=== PATIENT | female | born 1965 | race Asian ===

== ENCOUNTER 2017-01-29 17:54 | Emergency (ER) | payer OTHER ==
[~2017-01-29] VITALS: Ht 157.5 cm; Wt 63.6 kg
[~2017-01-29 17:54] MED LIST: IBUP-1547 PO; LORA10TA7 PO; METO50 PO; SUMA25TA9 PO
[2017-01-29 19:14] LABS: BASOPHILS # (AUTO) 0.04 K/uL (0.00-0.20); BASOPHILS % (AUTO) 0.6 % (0.0-2.0); EOSINOPHILS # (AUTO) 0.11 K/uL (0.00-0.70); EOSINOPHILS % (AUTO) 1.58 % (1.0-6.0); HEMATOCRIT 39.5 % (36-46); LYMPHOCYTES # (AUTO) 1.9 K/uL (1.0-4.8); LYMPHOCYTES % (AUTO) 27.5 % (22.0-44.0); MEAN CORPUSCULAR HEMOGLOBIN 29.6 pg (26.0-34.0); MEAN CORPUSCULAR HGB CONC 32.8 G/dL (31.0-37.0); MEAN CORPUSCULAR VOLUME 90 fL (80-100); MONOCYTES # (AUTO) 0.5 K/uL (0.1-1.0); MONOCYTES % (AUTO) 7.2 % (2.0-9.0); NEUTROPHILS # (AUTO) 4.3 K/uL (1.8-7.7); NEUTROPHILS % (AUTO) 63.1 % (40.0-70.0); PLATELET COUNT (AUTO) 309 K/uL (150-450); RED BLOOD CELL COUNT(AUTO) 4.38 MIL/uL (4.00-5.20); RED CELL DISTRIBUTION WIDTH 13.7 % (11.5-14.5); WHITE BLOOD COUNT (AUTO) 6.9 K/uL (4.5-11.0)
[2017-01-29 19:22] LABS: ANION GAP 6 mmol/L (8-16); CALCIUM, TOTAL 8.5 mg/dL (8.8-10.5); CARBON DIOXIDE 29 mmol/L (22-29); CHLORIDE 102 mmol/L (98-107); GLOMERULAR FILTR. RATE CALC > 60 mL/min (>60); POTASSIUM 3.5 mmol/L (3.5-5.1); SODIUM SERUM 137 mmol/L (136-145); UREA NITROGEN, BLOOD 6 mg/dL (7-18)
[2017-01-29 19:28] LABS: ALANINE AMINOTRANSFERASE 37 U/L (12-78); ALBUMIN 3.4 g/dL (3.4-5.0); ASPARTATE AMINOTRANSFERASE 30 U/L (15-37); BILIRUBIN,TOTAL 0.2 mg/dL (0.1-1.0); CREATINE KINASE, TOTAL 64 U/L (26-192); TOTAL PROTEIN, SERUM 7.3 g/dL (6.4-8.2)
[2017-01-29 19:47] LABS: B-TYPE NATRIURETIC PEPTIDE 15 pg/mL (0-100)
[2017-01-29 19:53] LABS: APPEARANCE,URINE CLEAR (CLEAR); GLUCOSE, URINE (UA) NEGATIVE (NEGATIVE); KETONES,URINE NEGATIVE (NEGATIVE); LEUKOCYTE ESTERASE ,URINE NEGATIVE (NEGATIVE); OCCULT BLOOD,URINE NEGATIVE (NEGATIVE); PROTEIN,URINE NEGATIVE (NEGATIVE)
[2017-01-29 20:35] LABS: ADD UA MICROSCOPIC NO
[2017-01-29 20:52] LABS: GLUCOSE,POINT OF CARE 106 MG/DL (70-110)
[2017-01-29 20:59] VITALS: BP 146/78
== END 2017-01-29 21:23 | disposition home or self-care (01) ==
LOC: EMS 17:57
DX: R00.2 Palpitations (principal); I10 Essential (primary) hypertension; Z88.8 Allergy status to other drugs, medicaments and biological substances
CPT/HCPCS: 81025; 82962; 93005; 99285

== ENCOUNTER 2017-05-26 04:18 | Emergency (ER) | payer OTHER ==
[~2017-05-26] VITALS: Ht 157.5 cm; Wt 57.3 kg
[2017-05-26] MEDS ORDERED: ASPIRIN 81 MG CHEWABLE TABLET PO ONE (05:00)
[2017-05-26 05:27] LABS: BASOPHILS % (AUTO) 0.4 % (0.0-2.0); EOSINOPHILS % (AUTO) 1.2 % (1.0-6.0); HEMATOCRIT 39.5 % (36-46); HEMOGLOBIN 13.5 g/dL (12.0-16.0); LYMPHOCYTES # (AUTO) 1.3 K/uL (1.0-4.8); LYMPHOCYTES % (AUTO) 26.9 % (22.0-44.0); MEAN CORPUSCULAR HEMOGLOBIN 30.6 pg (26.0-34.0); MEAN CORPUSCULAR HGB CONC 34.1 G/dL (31.0-37.0); MEAN CORPUSCULAR VOLUME 90 fL (80-100); MONOCYTES # (AUTO) 0.5 K/uL (0.1-1.0); MONOCYTES % (AUTO) 10.9 % (2.0-9.0); NEUTROPHILS # (AUTO) 2.9 K/uL (1.8-7.7); NEUTROPHILS % (AUTO) 60.6 % (40.0-70.0); PLATELET COUNT (AUTO) 323 K/uL (150-450); RED CELL DISTRIBUTION WIDTH 14.2 % (11.5-14.5); WHITE BLOOD COUNT (AUTO) 4.7 K/uL (4.5-11.0)
[2017-05-26 05:38] LABS: ANION GAP 8 mmol/L (8-16); CALCIUM, TOTAL 8.3 mg/dL (8.8-10.5); CARBON DIOXIDE 25 mmol/L (22-29); CHLORIDE 105 mmol/L (98-107); CREATININE 0.64 mg/dL (0.60-1.30); GLOMERULAR FILTR. RATE CALC > 60 mL/min (>60); POTASSIUM 3.5 mmol/L (3.5-5.1); SODIUM SERUM 138 mmol/L (136-145); UREA NITROGEN, BLOOD 11 mg/dL (7-18)
[2017-05-26 05:44] LABS: ALANINE AMINOTRANSFERASE 65 U/L (12-78); ALBUMIN 3.5 g/dL (3.4-5.0); ASPARTATE AMINOTRANSFERASE 40 U/L (15-37); BILIRUBIN,TOTAL 0.6 mg/dL (0.1-1.0); CREATINE KINASE, TOTAL 45 U/L (26-192); TOTAL PROTEIN, SERUM 7.3 g/dL (6.4-8.2)
[2017-05-26 05:48] LABS: B-TYPE NATRIURETIC PEPTIDE 18 pg/mL (0-100)
[2017-05-26 06:17] VITALS: BP 136/88
[2017-05-27] MEDS ORDERED: HYD25 PO (22:31)
== END 2017-05-26 07:22 | disposition home or self-care (01) ==
LOC: EMS 04:19
DX: R00.2 Palpitations (principal); I11.9 Hypertensive heart disease without heart failure; Z88.8 Allergy status to other drugs, medicaments and biological substances
CPT/HCPCS: 93005; 99285

== ENCOUNTER 2017-05-27 22:13 | Emergency (ER) | payer OTHER ==
[~2017-05-27] VITALS: Ht 154.9 cm; Wt 57.3 kg
[~2017-05-27 22:13] MED LIST changes: -SUMA25TA9 PO
[2017-05-27 22:23] VITALS: BP 168/92
[2017-05-27] MEDS ORDERED: HYD25 PO (22:31)
== END 2017-05-27 23:23 | disposition left against medical advice (07) ==
LOC: EMS 22:14
DX: Z00.8 Encounter for other general examination (principal); F41.9 Anxiety disorder, unspecified; I11.9 Hypertensive heart disease without heart failure; Z53.21 Procedure and treatment not carried out due to patient leaving prior to being seen by health care provider

== ENCOUNTER 2017-08-10 02:23 | Emergency (ER) | payer OTHER ==
[~2017-08-10] VITALS: Ht 154.9 cm; Wt 56.8 kg
[~2017-08-10 02:23] MED LIST changes: +HYD25 PO; -IBUP-1547 PO; +IBUP-2343 PO
[2017-08-10 03:33] VITALS: BP 137/80
== END 2017-08-10 04:10 | disposition home or self-care (01) ==
LOC: EMS 02:24
DX: F41.9 Anxiety disorder, unspecified (principal); R00.2 Palpitations; I11.9 Hypertensive heart disease without heart failure; Z88.6 Allergy status to analgesic agent; Z88.8 Allergy status to other drugs, medicaments and biological substances
CPT/HCPCS: 93005; 99284

== ENCOUNTER 2017-11-19 21:04 | Emergency (ER) | payer OTHER ==
[~2017-11-19] VITALS: Ht 154.9 cm; Wt 60.0 kg
[~2017-11-19 21:04] MED LIST changes: -HYD25 PO; -LORA10TA7 PO
[2017-11-19 22:52] VITALS: BP 155/79
== END 2017-11-19 22:57 | disposition home or self-care (01) ==
LOC: EMS 21:07
DX: R51 Headache (principal); R42 Dizziness and giddiness; I11.9 Hypertensive heart disease without heart failure; Z88.6 Allergy status to analgesic agent; Z88.5 Allergy status to narcotic agent
CPT/HCPCS: 99283

== ENCOUNTER 2019-08-17 21:12 | Emergency (ER) | payer OTHER ==
[~2019-08-17] VITALS: Ht 154.9 cm; Wt 68.2 kg
[2019-08-17] MEDS ORDERED: SERT50TA12 PO (21:32)
[2019-08-17] MEDS ORDERED: TETRACAINE HCL/PF 0.5% 4 ML OPHTHALMIC SOLUTION OD ONE (22:00)
[2019-08-17] MEDS ORDERED: FLUORESCEIN SODIUM 1 MG STRIP OD ONE (22:00)
[2019-08-17] MEDS ORDERED: PROPARACAINE HCL 0.5% 15 ML OPHTHALMIC SOLUTION ONE (22:02)
[2019-08-17] MEDS ORDERED: PROPARACAINE HCL 0.5% 15 ML OPHTHALMIC SOLUTION OD ONE (22:15)
[2019-08-17 22:40] VITALS: BP 146/88
== END 2019-08-17 22:50 | disposition home or self-care (01) ==
LOC: EMS 21:13
DX: H10.11 Acute atopic conjunctivitis, right eye (principal); I11.9 Hypertensive heart disease without heart failure; F41.9 Anxiety disorder, unspecified; Z79.899 Other long term (current) drug therapy; Z88.5 Allergy status to narcotic agent